=== PATIENT | female | born 1950 | race Caucasian/White ===

== ENCOUNTER → 2016-05-03 | Outpatient (CLI) | payer MEDICARE, OTHER | LOC: MC.RAD 13:38 | DX: Z12.31 Encounter for screening mammogram for malignant neoplasm of breast (principal) ==

== ENCOUNTER → 2017-06-13 | Outpatient (CLI) | payer MEDICARE, OTHER | LOC: MC.RAD 05-28 08:00 | DX: Z12.31 Encounter for screening mammogram for malignant neoplasm of breast (principal) ==

== ENCOUNTER → 2018-06-15 | Outpatient (CLI) | payer MEDICARE, OTHER | LOC: MC.RAD 08:00 | DX: Z12.31 Encounter for screening mammogram for malignant neoplasm of breast (principal) ==

== ENCOUNTER → 2018-06-22 | Outpatient (CLI) | payer MEDICARE, OTHER | LOC: COL.RAD 13:01 | DX: I10 Essential (primary) hypertension (principal); J94.9 Pleural condition, unspecified; R91.1 Solitary pulmonary nodule | CPT/HCPCS: Q9967 ==

== ENCOUNTER → 2018-12-23 | Outpatient (CLI) | payer MEDICARE, OTHER | LOC: COL.RAD 12-22 10:30 | DX: J94.9 Pleural condition, unspecified (principal) | CPT/HCPCS: Q9967 ==

== ENCOUNTER → 2019-07-05 | Outpatient (CLI) | payer MEDICARE, OTHER | LOC: MC.RAD 14:38 | DX: Z12.31 Encounter for screening mammogram for malignant neoplasm of breast (principal) ==

== ENCOUNTER → 2019-07-09 | Outpatient (CLI) | payer MEDICARE, OTHER | LOC: COL.RAD 06-07 07:30 | DX: Z01.812 Encounter for preprocedural laboratory examination (principal); J94.9 Pleural condition, unspecified | CPT/HCPCS: Q9967 ==

== ENCOUNTER → 2019-11-16 | Outpatient (CLI) | payer MEDICARE, OTHER | LOC: COL.RAD 11-11 12:45 | DX: R22.42 Localized swelling, mass and lump, left lower limb (principal); D17.9 Benign lipomatous neoplasm, unspecified ==

== ENCOUNTER → 2020-07-17 | Outpatient (CLI) | payer MEDICARE, OTHER | LOC: MC.RAD 07:30 | DX: Z12.31 Encounter for screening mammogram for malignant neoplasm of breast (principal) ==

== ENCOUNTER → 2021-09-03 | Outpatient (CLI) | payer MEDICARE, OTHER | LOC: MC.RAD 07:46 | DX: Z12.31 Encounter for screening mammogram for malignant neoplasm of breast (principal) ==

== ENCOUNTER → 2023-09-18 | Outpatient (CLI) | payer MEDICARE, OTHER | LOC: MC.RAD 07:45 | DX: Z12.31 Encounter for screening mammogram for malignant neoplasm of breast (principal) ==